=== PATIENT | male | born 1965 ===

== ENCOUNTER 2017-12-27 09:03 | Emergency (ER) | payer OTHER ==
[~2017-12-27] VITALS: Ht 180.3 cm; Wt 94.3 kg
[~2017-12-27 09:03] MED LIST: ATI1 PO; LIPI20 PO; LISINOPRIL HCTZ1 TA1 PO; PRI20 PO; PROTONIX40 MG PO; ZANTAC 300300 MG PO; ZES10 PO; ZOF4 PO
[2017-12-27 09:07] VITALS: Ht 180.3 cm; Wt 94.3 kg
[2017-12-27 10:43] VITALS: BP 140/78
== END 2017-12-27 10:43 | disposition home or self-care (01) ==
LOC: ED 09:03
DX: S39.012A Strain of muscle, fascia and tendon of lower back, initial encounter (principal); I10 Essential (primary) hypertension; K21.9 Gastro-esophageal reflux disease without esophagitis; Z88.0 Allergy status to penicillin; V89.2XXA Person injured in unspecified motor-vehicle accident, traffic, initial encounter; Y93.89 Activity, other specified; Y92.89 Other specified places as the place of occurrence of the external cause; Y99.8 Other external cause status